=== PATIENT | female | born 1930 | race Caucasian/White ===

== ENCOUNTER 2019-02-21 20:20 | Inpatient (IN) ==
[2019-02-21] MEDS ORDERED: TYLENOL PO ONE (21:05)
[2019-02-21] MEDS ORDERED: ZOFRAN IV ONE (21:05)
[2019-02-21] MEDS ORDERED: NS 1,000 ML IV ONE (21:05)
[2019-02-21 21:51] LABS: BASO# 0.05 X1000 (0.0-0.2); BASO% 0.9 % (0.0-0.8); EOS# 0.01 X1000 (0.0-0.7); EOS% 0.2 % (0.0-10.0); HEMATOCRIT 23.6 % (37.0-47.0); HEMOGLOBIN 7.7 g/dL (12.0-16.0); IMM GRAN# 0.19 X1000 (0.0-0.04); IMM GRAN% 3.3 % (0.0-0.5); LYMPH# 0.91 X1000 (1.2-3.4); LYMPH% 15.9 % (20.5-51.1); MCH 30.8 PG (27-31); MCHC 32.6 g/dL (33-37); MCV 94.4 FL (81-99); MONO# 0.78 X1000 (0.11-0.59); MONO% 13.6 % (1.7-9.3); MPV 9.8 FL (7.4-10.4); NEUT% 66.1 % (42.2-75.2); PLT 162 X1000 (130-400); RDW 15.9 % (11.5-14.5); WBC 5.74 X1000 (4.8-10.8)
[2019-02-21 22:42] LABS: AGAP 11; ALB/GLOB RATIO 1.6; ALBUMIN 2.8 g/dL (3.5-5.0); ALKALINE PHOSPHATASE 41 U/L (32-104); BUN 12 mg/dL (8-22); CHLORIDE 104 mmol/L (98-107); COSMO 284; CREATININE 0.6 mg/dL (0.5-0.9); ESTIMATED GFR > 60; GLUCOSE 146 mg/dL (70-104); GOT 27 U/L (10-30); GPT 19 U/L (10-36); LIPASE 18 U/L (13-60); SODIUM 141 mmol/L (136-145); TCO2 26 mmol/L (25-35); TOTAL BILIRUBIN 0.55 mg/dL (0.20-1.00); TOTAL PROTEIN 4.5 g/dL (6.3-8.3)
[2019-02-21 22:47] LABS: POTASSIUM 2.8 mmol/L (3.5-5.1)
[2019-02-21 22:48] LABS: CALCIUM 6.8 mg/dL (8.8-10.2)
[2019-02-21] MEDS ORDERED: POTASSIUM CHLORIDE 20% LIQUID PO ONE (23:31)
[2019-02-22 00:43] LABS: URINE SOURCE CATH
[2019-02-22 00:45] LABS: BILIRUBIN URINE NEGATIVE (NEGATIVE); BLOOD URINE TRACE (NEGATIVE); COLOR YELLOW; GLUCOSE URINE NEGATIVE (NEGATIVE); KETONE URINE NEGATIVE (NEGATIVE); LEUKOCYTES URINE LARGE (NEGATIVE); NITRITE URINE NEGATIVE (NEGATIVE); PH URINE 6.5; PROTEIN URINE NEGATIVE (NEGATIVE); SP GRAVITY URINE 1.022; TURBIDITY URINE CLEAR (CLEAR); UROBILINOGEN URINE NORMAL (NORMAL)
[2019-02-22 00:46] LABS: UR EPITHELIAL CELLS <10 /HPF (<10); URINE BACTERIA NEGATIVE /HPF; URINE RBC <10 /HPF (<10); URINE WBC TNTC /HPF (<10)
[2019-02-22] MEDS ORDERED: ROCEPHIN 1 GM in NS 50 ML IV ONE (01:08)
[2019-02-22] MEDS ORDERED: FLAGYL 500 MG/NS 500 MG/100 ML IVPB IV ONE (01:08)
--- NOTE | 2019-02-22 01:23 | PROVIDER DOCUMENTATION ---
This chart was entered by Joselin Moody Scribe, acting as scribe for Kenia Edwards MD. HPI-General Adult - General Chief Complaint: Fever Stated Complaint: (CHEMO PT.) FEVER, DIARRHEA Time Seen by Provider: 02/21/19 21:04 Source: patient Allergies/Adverse Reactions: Patient Allergies Allergy/AdvReac Type Severity Reaction Status Date / Time nitrofurantoin Allergy RASH Verified 02/21/19 20:58 [From Macrobid] Penicillins Allergy RASH Verified 02/21/19 20:58 Home Medications: Home Medication List Medication Instructions Recorded Confirmed Last Taken Type Alprazolam [Xanax] 0.25 mg PO TID PRN PRN 04/24/18 04/24/18 04/23/18 21:00 History Amlodipine [Norvasc] 5 mg PO DAILY 04/24/18 04/24/18 04/23/18 21:00 History Aspirin [Aspir-Low] 81 mg PO QHS 04/24/18 04/24/18 1 Week Ago History ~04/17/18 Losartan [Cozaar] 25 mg PO QHS 04/24/18 04/24/18 04/23/18 21:00 History Oxybutynin [Ditropan] 5 mg PO DAILY 04/24/18 04/24/18 04/23/18 21:00 History Pantoprazole [Protonix] 40 mg PO QHS 04/24/18 04/24/18 04/23/18 21:00 History - History of Present Illness -Gen Adult Nature of Presenting Problems: Pt is 88/F presenting to ED w/ fever, weakness, diarrhea. 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 Pt was scheduled for chemo yesterday, but it was decided that they would not give it because she was too weak. Last chemo was on 02/14. no blood in diarrhea, slight nausea but no emesis, no dysuria. no cough. States she was not told that she was neuropenic on her labs yesterday. Location of Pain/Injury: reports: generalized (weakness) Onset/Duration: reports: gradual Timing: reports: still present Context/Activities at Onset: reports: none Modifying Factors: improves with: nothing Associated Symptoms: reports: diarrhea, fatigue, nausea, weakness. denies: chest pain, shortness of breath, vomiting Similar Symptoms Previously?: No Recently seen or treated by another doctor?: No Review of Systems - Adult - REVIEW OF SYSTEMS - ADULT Constitutional: reports: fever (100.3). denies: chills Eyes: reports: no symptoms reported Ears, Nose, Mouth & Throat: reports: no symptoms reported Cardiovascular: reports: no symptoms reported. denies: chest pain, edema Respiratory: reports: no symptoms reported. denies: cough, shortness of breath, wheezing Gastrointestinal: reports: no symptoms reported, diarrhea, nausea. denies: abdominal pain, constipation, vomiting Genitourinary: reports: no symptoms reported Musculoskeletal: reports: no symptoms reported Integumentary: reports: no symptoms reported Neurological: reports: no symptoms reported. denies: dizziness/vertigo, headache/migraines Psychiatric: reports: no symptoms reported Endocrine: reports: no symptoms reported Hematologic/Lymphatic: reports: no symptoms reported Allergic/Immunologic: reports: no symptoms reported All Other Systems: Reviewed and Negative Past History - Adult - PAST MEDICAL HISTORY-ADULT Review of Records: reports: Old Records Reviewed, Nursing Assessment Review, Medications Reviewed, Social history reviewed & non-contributory. Major Childhood Illnesses: reports: denies history Cardiovascular: reports: denies history Respiratory: reports: cancer (lung mets) Gastrointestinal: reports: denies history Obstetrical/Gynecological: reports: denies history Genitourinary: reports: denies history Musculoskeletal: reports: denies history Neurological: reports: denies history Psychiatric: reports: denies history Endocrine/Immune: reports: denies history - SOCIAL HISTORY Smoking: denies, non-smoker Substance Use: none/never Alcohol Use Frequency: never Physical Exam-General - PHYSICAL EXAM-ADULT Initial Vital Signs Reviewed: Yes - CONSTITUTIONAL General Appearance: appears well, alert, no apparent distress, other (feels warm to touch) - EYES Eyes: PERRL/EOMI, pink conjunctivae - HEAD, EARS, NOSE, MOUTH & THROAT HENMT: normocephalic/atraumatic, normal ENT inspection, TMs normal, pharynx normal. negative: moist mucous membranes (dry) - NECK Neck: non-tender, full range of motion, supple, normal inspection - RESPIRATORY Respiratory: lungs clear - CARDIOVASCULAR Cardiovascular: tachycardia (121) - GASTROINTESTINAL (ABDOMEN) Abdominal Exam: normal bowel sounds, soft, tenderness (mild diffuse ttp) - LYMPHATIC Lymphatic: no adenopathy - MUSCULOSKELETAL Back Exam: normal inspection, no CVA tenderness, no vertebral tenderness Extremity: normal range of motion, non-tender, normal gait, normal inspection - SKIN Integumentary: normal color, warm/dry, pallor - NEUROLOGIC Neurologic: grossly normal, no motor/sensory deficits - PSYCHIATRIC Psych/Mental Status: normal mood/affect, normal thought content, normal thought process, oriented x 3 Progress - PLAN OF CARE/RESULTS Progress/Plan/Lab Results: Vital Signs - 8 hr 02/21/19 20:28 02/21/19 20:53 Temperature 100.3 F H Pulse Rate 121 H Respiratory Rate 19 Blood Pressure 130/68 124/53 O2 Sat by Pulse Oximetry 92 L 94 L weakness with fever and diarrhea will further evaluate for causes including but not limited to colitis, diverticulitis, uti, dehydration, neuropenia, anemia, gastroenteritis Result Diagrams: 02/21/19 21:20 02/21/19 21:20 - REASSESSMENT Reassessment #1 Status: improving (feeling better, symptoms likley due to colitis along with hypokalemia and anemia. Unknown if pt's anemia has been chronically in this range as no prior labs were available but pt reports she has been told she has been anemic. Treated with potassium, ceftriaxone and flagyl and will admit for f urther evaluation and treatment.) - EKG 1 Time of EKG reading by physician:: 23:35 EKG Read and Signed by:: Kenia Edwards EKG Interpretation (*Must complete 3 of following elements*): Abnormal (sinus rhythm with 1st degree AV block, Left bundle branch block, Abnormal ECG) Rate: 94 Rhythm: sinus Northrop: normal QRS: normal - CT/MRI 1 CT Study: Abdomen Impression: Abnormal (no bowel obstruction, possible mild colitis, non-specific debris in the bladder, interstitial and airspace disease is indeterminate but suspicious for edema or infection.) - CONSULTS/PCP/HOSPITALIST Notification #1 *Consult/PCP/Hospitalist*: Conrado Time Discussed: 01:21 Consult Disposition: Admit Departure - Departure Date of Disposition Decision: 02/22/19 Time of Disposition Decision: 01:23 DIAGNOSIS: Colitis, Hypokalemia, Hypocalcemia Anemia Qualifiers: Anemia type: unspecified type Qualified Code(s): D64.9 - Anemia, unspecified Disposition: ADMITTED INPATIENT 09 Certified Medical Emergency: Emergent Condition: Fair Referrals and Follow-Ups: Aliyah Hutchins MD [Primary Care Provider] - - Critical Care Note This patient required my direct & personal management of CC.: No Attestation - Physician/ KRYSTAL Attestation Patient care was provided by Advanced Practice Provider:: No The physician spent face to face time with patient:: Yes Advanced Practice Provider documentation review:: Supervising physician onsite and consulted in the evaluation and care of this patient. The physician did have a face to face encounter with the patient. This chart was documented by the indicated scribe, (Joselin Moody, Aleida) and accurately reflects the services I performed and decisions made by me, Kenia Edwards MD, as attested by the provider's signature.
[2019-02-22 01:38] LABS: RETIC% 2.61 % (0.8-2.1); RETIC-HE 26.2 PG (28.2-36.6)
[2019-02-22 01:57] LABS: PHOSPHORUS 1.7 mg/dL (2.7-4.5)
[2019-02-22] MEDS ORDERED: MORPHINE IV PRN ×2 (03:13→13:31)
[2019-02-22] MEDS ORDERED: ZOFRAN IV PRN (03:13)
[2019-02-22] MEDS ORDERED: ROCEPHIN 1 GM in NS 50 ML IV SCH (03:13)
[2019-02-22] MEDS: LOVENOX SUBQ SCH (03:53)
[2019-02-22] MEDS ORDERED: XANAX PO ONE (04:07)
[2019-02-22] MEDS: POTASSIUM CHLORIDE 10 MEQ in NS 1,000 ML IV SCH ×2 (04:27→11:00)
--- NOTE | 2019-02-22 05:11 | HISTORY AND PHYSICAL ---
REASON FOR ADMISSION: Two weeks of diarrhea and fever of 1 day. HISTORY OF PRESENT ILLNESS: Ms. 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 She also has a history of anxiety. Comes in today with 2-week history of nonbloody diarrhea, worse when she eats. She has 3 to 4 loose stools a day. Denies any contacts with anybody with diarrheal illness. No history of travel. No antibiotic use recently. No recent change in her medications. Denies any vomiting but has been having intermittent nausea. Came in today because she was profoundly weak and developed intermittent fevers today. Also, complains of chills. She was unable to walk in to the point that her son had to practically lift her up and bring her in. Also admits to having postural lightheadedness. No bleeding from any orifice. No genitourinary or cardiorespiratory complaints. Two days ago was worse, seen by Dr. Hutchins's nurse practitioner, and her chemotherapy was withheld because her lab work was abnormal. REVIEW OF SYSTEMS: Twelve system review was done, positive findings per HPI. Currently, the patient says she feels much better since receiving 1 L of fluid. No rash or arthralgia. No polyuria or polydipsia. ALLERGIES: Penicillin, Macrobid. HOME MEDICATIONS: 1. Protonix 40 mg at bedtime. 2. Ditropan 5 mg daily, 3. Ferrous sulfate 325 mg b.i.d. 4. Lexapro 10 mg daily. 5. Amlodipine 5 mg daily. 6. Xanax. 0.25 mg t.i.d. FAMILY HISTORY: Notable for diabetes, prostate cancer, thyroid cancer in 1st degree relatives. SOCIAL HISTORY: Does not smoke, drink, or use drugs. Lives with her daughter. SURGICAL HISTORY: She has had hysterectomy, kidney stone extraction, cholecystectomy, appendectomy. LABORATORY WORK: White count 5000, H and H 7.7 and 23.6, platelets 162,000 with normal differential. Potassium is 2.8, BUN 12, creatinine 0.6. Glucose is 146, calcium is 6.8, with albumin of 2.8, phosphorus is 4.3, iron is 30, B12 and folate normal. Reticulocyte percent is 2.6. WBC too numerous to count with lots of leukocytes, no bacteria. CT scan of the abdomen and pelvis showed diffuse colitis. Chest film is essentially unremarkable, within normal limits. CT scan does show bilateral infiltrates in lungs in the bases. PHYSICAL EXAMINATION: VITAL SIGNS: Blood pressure 101/44, heart rate 66, respirations 18, temperature 97.8, O2 saturation 98% on room air. GENERAL: She is a pleasant, chronically ill, woman who is alert and oriented to person, time. Normal mood and affect. HEENT: Head is normocephalic, atraumatic. Eyes: PERRL, EOMI. She is anicteric but pale. ENT exam is grossly unremarkable. NECK: Supple. No JVD or carotid bruit. No thyromegaly. CHEST: Clear to auscultation with good air entry both lung ferreira. CARDIOVASCULAR: First and second sounds heard. No gallops, murmurs, rubs. Rhythm is regular. ABDOMEN: Full, soft, with very minimal tenderness, diffuse tenderness. No rebound or guarding. Bowel sounds are hypoactive. RECTAL: Deferred at this time. EXTREMITIES: No edema, clubbing, or cyanosis. She has numerous bruises on the geiger. Distal pulses have decreased pulse volume, symmetrical and regular. NEUROLOGICAL: No gross focal deficits. SKIN: Grossly unremarkable. See above otherwise. MUSCULOSKELETAL: Grossly normal at this time. ASSESSMENT AND PLAN: 1. Diffuse colitis. 2. Bibasilar pneumonia. 3. Probable urinary tract infection. 4. Metastatic throat cancer. 5. Hypertension. 6. Anemia secondary to probable neoplasm/chemotherapy. 7. Hypokalemia. 8. Dehydration. 9. Hypocalcemia and hypophosphatemia. PLAN: Continue IV fluid rehydration. If repeat CBC shows hemoglobin less than 7, we will transfuse with 1 unit of packed red blood cells. Empiric antibiotics, i.e. Flagyl and Rocephin, will be continued. Daily CRP to detect response to treatment. Replete any electrolyte derangements in the interim. Hold blood pressure medications for systolic pressures less than 150. If need be consult Dr. Aliyah Hutchins. cc: MD Aliyah Ozuna MD
[2019-02-22] MEDS: FLAGYL 500 MG/NS 500 MG/100 ML IVPB IV SCH ×3 (06:09→18:47)
--- NOTE | 2019-02-22 06:36 | EKG Report ---
Test Performed on : 02/21/2019 11:35:14 PM Test Reason : hyperkalemia Blood Pressure : / mmHG Vent. Rate : 094 BPM Atrial Rate : 094 BPM P-R Int : 232 ms QRS Dur : 128 ms QT Int : 424 ms P-R-T Axes : 053 -26 145 degrees QTc Int : 530 ms Sinus rhythm. with 1st degree AV block. Left bundle branch block Abnormal ECG No previous ECGs available Unconfirmed Result
--- NOTE | 2019-02-22 07:27 | Diag Imaging Result Doc PS360 ---
EXAM: CHEST-2 VIEWS 02/21/2019 HISTORY: fever TECHNIQUE: AP and lateral chest COMMENT: There is ill-defined opacity in both lung bases which was not the case on 04/24/2018. The heart size and pulmonary vascularity appears stable. IMPRESSION: Bronchopneumonia. Electronically signed by Venu hTomas 02/22/2019 7:25 AM
--- NOTE | 2019-02-22 08:02 | Diag Imaging Result Doc PS360 ---
EXAM: CT ABD/PELVIS W/IV CONT ONLY INDICATION: fever TECHNIQUE: This exam was performed using automated exposure control, adjustment of mA or kV according to patient size, and/or use of iterative reconstruction technique. COMPARISON: CT PET scan dated 03/28/2018 FINDINGS: There is a trace right pleural fluid collection at the base. There are patchy interstitial and airspace consolidations at both lung bases indicating edema and/or infection. There is a masslike lesion in the right lower lobe in the region of a hypermetabolic mass seen on the previous PET scan that has increased in size suspicious for neoplasm. It measures 3.5 x 2.8 cm axially on the current study. There has been a prior cholecystectomy. There is a tiny hypodense focus at the inferior aspect of the right hepatic lobe with no evidence of associated enhancement. This probably represents a tiny cyst. The spleen, pancreas, and adrenal glands are essentially unremarkable. There is a nonobstructive intrarenal stone on the right. There are several low dense renal foci most consistent with small cysts, some of which appear to contain proteinaceous debris or blood products. There is one hypodense focus at the anterior aspect of the left kidney measuring 1.4 x 1.3 cm axially on image 58 of series 6 that appears to be heterogeneous and may be slightly enhancing at its periphery. Neoplasm cannot be excluded. It is difficult to compare to the previous PET scan as it was done without IV contrast. There is mild prominence of the distal left ureter that is nonspecific. No obstructing stone is identified. There is layering debris in the urinary bladder that is nonspecific. It may represent blood products or other layering proteinaceous debris. It does not enhance. The urinary bladder is unremarkable, otherwise. There has been a prior hysterectomy. There is liquid stool throughout the colon suggesting a diarrheal illness. The distal colonic wall appears mildly prominent suggesting possible mild colitis. There is no evidence of bowel obstruction. There is a small hiatal hernia. The remainder of the GI tract is essentially unremarkable. There is trace free fluid layering in the pelvis. No free abdominal gas is appreciated. IMPRESSION: 1.Liquid stool throughout the colon suggesting diarrhea with illness with mild prominence of the distal colonic wall. Consider mild colitis. 2.Interstitial and airspace infiltrates at the lung bases suggesting edema and/or infection. 3.Masslike density in the right lower lobe at the site of a hypermetabolic nodule seen on previous CT that has increased in size on the current study. 4.Multiple small renal hypodensities that appear to represent cysts. However, there is one that is heterogeneous and may represent a solid nodule at the anterior aspect of the left kidney. Neoplasm cannot be excluded. 5.Other incidental/nonacute findings detailed above. Electronically signed by Jose Armando Roberts 02/22/2019 8:00 AM
[2019-02-22] MEDS: NEUTRA-PHOS PO SCH ×2 (10:57→21:24)
[2019-02-22] MEDS: NORVASC PO SCH (10:57)
[2019-02-22 11:09] LABS: HEMATOCRIT 26.7 % (37.0-47.0); HEMOGLOBIN 8.7 g/dL (12.0-16.0); RBC 2.79 XMIL (4.2-5.4); WBC 6.47 X1000 (4.8-10.8)
[2019-02-22 11:10] LABS: BASO# 0.04 X1000 (0.0-0.2); BASO% 0.6 % (0.0-0.8); IMM GRAN# 0.18 X1000 (0.0-0.04); IMM GRAN% 2.8 % (0.0-0.5); LYMPH% 12.4 % (20.5-51.1); MCH 31.2 PG (27-31); MCHC 32.6 g/dL (33-37); MCV 95.7 FL (81-99); MONO# 0.76 X1000 (0.11-0.59); MONO% 11.7 % (1.7-9.3); MPV 9.6 FL (7.4-10.4); NEUT# 4.69 X1000 (1.4-6.5); NEUT% 72.5 % (42.2-75.2); PLT 182 X1000 (130-400); RDW 16.4 % (11.5-14.5)
[2019-02-22 12:08] LABS: AGAP 11; ALB/GLOB RATIO 1.3; ALKALINE PHOSPHATASE 41 U/L (32-104); BUN 5 mg/dL (8-22); CHLORIDE 109 mmol/L (98-107); COSMO 292; CREATININE 0.5 mg/dL (0.5-0.9); ESTIMATED GFR > 60; GLUCOSE 165 mg/dL (70-104); GOT 29 U/L (10-30); GPT 21 U/L (10-36); PHOSPHORUS 1.3 mg/dL (2.7-4.5); SODIUM 146 mmol/L (136-145); TCO2 26 mmol/L (25-35); TOTAL BILIRUBIN 0.55 mg/dL (0.20-1.00); TOTAL PROTEIN 5.4 g/dL (6.3-8.3)
[2019-02-22 12:37] LABS: CALCIUM 6.8 mg/dL (8.8-10.2); MAGNESIUM 0.8 mg/dL (1.5-2.7)
[2019-02-22] MEDS ORDERED: MAGNESIUM SULFATE 2 GM/S.W.I. 2 GM/50 ML IVPB IV ONE ×2 (13:29→21:48)
[2019-02-22] MEDS ORDERED: CALCIUM GLUCONATE 4.65 MEQ in NS 50 ML IV ONE ×2 (13:30→21:50)
[2019-02-22] MEDS ORDERED: 1/2 NS 1,000 ML IV SCH ×2 (13:45→19:08)
--- NOTE | 2019-02-22 15:42 | PROGRESS NOTE ---
DATE: 02/22/2019 SUBJECTIVE: At the moment of my physical exam, this patient was feeling much better. It looks like she was severely dehydrated. She has been having diarrhea for the past couple of weeks, probably related to chemotherapy and/or colitis. She does have a history of metastatic throat cancer followed by Dr. Hutchins. She did not notice any blood in the stool. She is not complaining of belly pain at this moment but she is still having electrolytes imbalance. She is slightly hypernatremic. The hypokalemia resolved. She is hypocalcemic and also she does have hypomagnesemia. I will do some changes with her IV fluids. I will stop the normal saline with potassium and I will put her on half NS since her sodium is a little bit high as well as the chloride. I will replace the calcium and the magnesium. She has been getting Neutra-Phos to replace the phosphorus. OBJECTIVE: Vital Signs: Temperature 100.8, pulse 90, respiratory rate 16, blood pressure 123/45, oxygen saturation 99 on 2 L of nasal cannula. HEENT: Head normocephalic. No trauma. PERRLA. Neck: Supple. No JVD. Central trachea. Mouth: I do not see any lesion inside her mouth at this moment. Chest: Clear to auscultation. Some crepitus mostly at the bases bilaterally. Extremities: No edema, no clubbing, no cyanosis. Neurological: This patient is completely alert and oriented x3. No focal deficit but some generalized weakness. LABORATORY: WBC 6.4, hemoglobin 8.7, hematocrit 26.7, platelet 182. Sodium 146, potassium 4, chloride 109, bicarbonate 26, BUN 5, creatinine 0.5, glucose 165, calcium 6.8, phosphorus 1.3, magnesium 0.8, albumin 3. ASSESSMENT AND PLAN: 1. Abdominal pain with diarrhea. As per the patient, she has been having diarrhea for at least a couple of weeks. CT scan showed the possibility of colitis. She has been placed on antibiotics, ceftriaxone and metronidazole. Will continue with oxygen supplementation. Will continue to monitor. She is not complaining of chest pain or shortness of breath at this moment. 2. Bibasilar pneumonia. Continue with ceftriaxone and Flagyl. She is not really having symptoms. She has not been coughing. 3. Possible of urinary tract infection. Urine cultures so far negative. 4. Metastatic throat cancer, followed by Dr. Hutchins. Will continue to monitor. 5. Hypertension, stable. 6. Anemia secondary to chronic disease. We will just monitor. 7. Electrolyte imbalance including hypokalemia resolved, hypernatremia with hypophosphatemia and hypocalcemia. Hypomagnesemia. We will replace all the electrolytes. I will recheck the electrolytes again at 7 p.m. cc: Thor Fernandez MD
--- NOTE | 2019-02-22 19:44 | Diag Imaging Result Doc PS360 ---
EXAM: CHEST-PORTABLE HISTORY: SOB TECHNIQUE: Chest single view COMPARISON: 02/21/2019 FINDINGS: The lungs are well expanded. The heart is not enlarged. The vessels are not distended. There are basilar infiltrates, right greater than left. No effusion identified. IMPRESSION: Worsening pneumonia. Electronically signed by Viral Underwood 02/22/2019 7:42 PM
[2019-02-22 20:10] LABS: AGAP 14; BUN 5 mg/dL (8-22); CALCIUM 6.7 mg/dL (8.8-10.2); CHLORIDE 105 mmol/L (98-107); COSMO 268; CREATININE 0.6 mg/dL (0.5-0.9); ESTIMATED GFR > 60; GLUCOSE 107 mg/dL (70-104); MAGNESIUM 1.4 mg/dL (1.5-2.7); POTASSIUM 3.7 mmol/L (3.5-5.1); SODIUM 135 mmol/L (136-145); TCO2 16 mmol/L (25-35)
[2019-02-22] MEDS: TYLENOL PO PRN (21:24)
[2019-02-22] MEDS: XANAX PO PRN (21:24)
[2019-02-23] MEDS: MERREM 1 GM in NS 50 ML IV SCH ×4 (00:07→21:34)
[2019-02-23] MEDS: LOVENOX SUBQ SCH (03:40)
[2019-02-23] MEDS: FLAGYL 250 MG/NS 250 MG/50 ML IVPB IV SCH ×4 (03:49→21:34)
[2019-02-23 07:16] LABS: BASO# 0.01 X1000 (0.0-0.2); BASO% 0.2 % (0.0-0.8); EOS# 0.01 X1000 (0.0-0.7); EOS% 0.2 % (0.0-10.0); HEMATOCRIT 26.8 % (37.0-47.0); HEMOGLOBIN 8.7 g/dL (12.0-16.0); IMM GRAN# 0.15 X1000 (0.0-0.04); IMM GRAN% 2.3 % (0.0-0.5); LYMPH# 0.68 X1000 (1.2-3.4); LYMPH% 10.4 % (20.5-51.1); MCH 30.9 PG (27-31); MCHC 32.5 g/dL (33-37); MONO# 0.71 X1000 (0.11-0.59); MONO% 10.9 % (1.7-9.3); MPV 9.8 FL (7.4-10.4); NEUT# 4.96 X1000 (1.4-6.5); PLT 219 X1000 (130-400); RBC 2.82 XMIL (4.2-5.4); RDW 16.8 % (11.5-14.5); WBC 6.52 X1000 (4.8-10.8)
[2019-02-23 07:48] LABS: AGAP 12; ALB/GLOB RATIO 1.2; ALBUMIN 2.9 g/dL (3.5-5.0); ALKALINE PHOSPHATASE 44 U/L (32-104); BUN 5 mg/dL (8-22); CHLORIDE 104 mmol/L (98-107); COSMO 277; CREATININE 0.5 mg/dL (0.5-0.9); ESTIMATED GFR > 60; GLUCOSE 98 mg/dL (70-104); GOT 30 U/L (10-30); GPT 22 U/L (10-36); POTASSIUM 3.1 mmol/L (3.5-5.1); SODIUM 140 mmol/L (136-145); TCO2 24 mmol/L (25-35); TOTAL PROTEIN 5.3 g/dL (6.3-8.3)
[2019-02-23 07:50] LABS: CALCIUM 7.1 mg/dL (8.8-10.2)
[2019-02-23] MEDS ORDERED: KLOR-CON PO ONE (08:01)
[2019-02-23] MEDS ORDERED: POTASSIUM PHOSPHATE 30 MMOL in NS 250 ML IV ONE (08:02)
--- NOTE | 2019-02-23 08:11 | Diag Imaging Result Doc PS360 ---
EXAM: CHEST-PORTABLE INDICATION: dyspnea TECHNIQUE: One view COMPARISON: 02/22/2019 FINDINGS: Bibasilar infiltrates are essentially stable. There has been interval development of an infiltrate in the right upper lobe as well. No other new consolidation is identified. Cardiac silhouette is stable. IMPRESSION: Developing infiltrate in the right upper lobe. Stable bibasilar infiltrates. Electronically signed by Jose Armando Roberts 02/23/2019 8:08 AM
[2019-02-23] MEDS: NORVASC PO SCH ×2 (08:30→09:00)
[2019-02-23] MEDS: TYLENOL PO PRN ×2 (08:30→17:13)
[2019-02-23] MEDS ORDERED: LASIX IV ONE (09:45)
[2019-02-23] MEDS: ZYVOX 600 MG/D5W 600 MG/300 ML IVPB IV SCH (12:18)
--- NOTE | 2019-02-23 13:09 | PROGRESS NOTE ---
DATE: 02/23/2019 SUBJECTIVE: At the moment of my physical exam this patient was completely alert. She was oriented x3. She feels a little bit short of breath, she has some crackles, mostly at the bases. Urine culture showed gram-positive cocci so I will put her on Zyvox. X-ray today showed a developing infiltrate in the right upper lobe, and stable bibasilar infiltrates. Continue with broad-spectrum antibiotics. OBJECTIVE: Vital Signs: At 8 a.m., temperature 101.3 degrees, pulse 82, respiratory rate 20, blood pressure 131/43, oxygen saturation 92 on 2 L of nasal cannula. HEENT: Head normocephalic, no trauma. PERRLA. Neck: Supple. No JVD. No masses. Central trachea. Chest: Clear to auscultation. Some crackles at the bases and some rhonchi scattered at the bases as well. Extremities: No edema. No clubbing. No cyanosis. Neurologic: This patient is completely alert and oriented x3. No focal neurological deficits, but generalized weakness. LABORATORY: WBC 6.5, hemoglobin 8.7, hematocrit 26.8, platelets 219,000. Sodium 140, potassium 3.1, chloride 104, bicarbonate 24, BUN 5, creatinine 0.5, glucose 98. Calcium 7.1. Phosphorus 1.6. Magnesium 2. Albumin 2.9. ASSESSMENT AND PLAN: 1. Abdominal pain with diarrhea, resolved. She had a CT scan that showed the possibility of colitis. She has been placed on antibiotics, we will continue with that. As per the patient she started having diarrhea at least a couple of weeks ago. 2. Bibasilar pneumonia, with a possible new infiltrate at the level of the right upper lobe, continue with broad-spectrum antibiotics. Since this patient has been having fever, I have stopped the ceftriaxone and put her on meropenem since she is allergic to penicillin. 3. Possible urinary tract infection, with a positive culture that showed gram-positive cocci, I have placed this patient on Zyvox. We will continue with same management. 4. Metastatic throat cancer followed by Dr. Hutchins. Continue to monitor. 5. Hypertension, stable. 6. Anemia secondary to chronic disease. We will just monitor. 7. Electrolyte imbalance. We will continue correcting her electrolytes. Today she is hypokalemic, also she has hypophosphatemia. Magnesium level resolved. Calcium level is better. 8. Metastatic throat cancer, I believe, to the lungs. We will continue to monitor. 9. Mild pulmonary edema on my physical examination. I will stop the IV fluids and I will give her a low dose of Lasix. I will re-evaluate this patient later for that. cc: Thor Fernandez MD
[2019-02-23] MEDS: XANAX PO PRN (21:37)
[2019-02-23] MEDS ORDERED: CALMOSEPTINE OINTMENT TOP PRN (22:13)
[2019-02-24] MEDS: ZYVOX 600 MG/D5W 600 MG/300 ML IVPB IV SCH ×2 (00:30→13:00)
[2019-02-24] MEDS: FLAGYL 250 MG/NS 250 MG/50 ML IVPB IV SCH ×2 (02:47→09:03)
[2019-02-24] MEDS: TYLENOL PO PRN ×2 (04:56→20:17)
[2019-02-24] MEDS: MERREM 1 GM in NS 50 ML IV SCH ×2 (04:57→05:05)
[2019-02-24] MEDS: LOVENOX SUBQ SCH ×2 (04:57→05:05)
[2019-02-24 07:06] LABS: BASO# 0.02 X1000 (0.0-0.2); BASO% 0.2 % (0.0-0.8); EOS# 0.04 X1000 (0.0-0.7); EOS% 0.5 % (0.0-10.0); HEMOGLOBIN 7.8 g/dL (12.0-16.0); IMM GRAN# 0.13 X1000 (0.0-0.04); IMM GRAN% 1.6 % (0.0-0.5); LYMPH# 0.81 X1000 (1.2-3.4); LYMPH% 9.7 % (20.5-51.1); MCH 30.7 PG (27-31); MCHC 32.5 g/dL (33-37); MCV 94.5 FL (81-99); MONO# 0.62 X1000 (0.11-0.59); MONO% 7.5 % (1.7-9.3); MPV 9.2 FL (7.4-10.4); NEUT% 80.5 % (42.2-75.2); PLT 239 X1000 (130-400); RBC 2.54 XMIL (4.2-5.4); RDW 16.5 % (11.5-14.5); WBC 8.32 X1000 (4.8-10.8)
[2019-02-24 07:40] LABS: AGAP 11; BUN 5 mg/dL (8-22); CALCIUM 6.6 mg/dL (8.8-10.2); CHLORIDE 106 mmol/L (98-107); COSMO 280; CREATININE 0.5 mg/dL (0.5-0.9); ESTIMATED GFR > 60; GLUCOSE 98 mg/dL (70-104); MAGNESIUM 1.5 mg/dL (1.5-2.7); PHOSPHORUS 1.1 mg/dL (2.7-4.5); SODIUM 142 mmol/L (136-145); TCO2 25 mmol/L (25-35)
[2019-02-24] MEDS ORDERED: CALCIUM GLUCONATE 4.65 MEQ in NS 50 ML IV ONE (08:00)
[2019-02-24] MEDS: NORVASC PO SCH (09:59)
[2019-02-24] MEDS ORDERED: POTASSIUM PHOSPHATE 40 MEQ in NS 250 ML IV ONE (10:00)
--- NOTE | 2019-02-24 11:15 | CONSULTATION ---
DATE OF CONSULTATION: 02/24/2019 CONCLUSION: The patient has a bilateral pneumonia. She also has diarrhea that could possibly be due to Clostridium difficile. She also has an enterococcal urinary tract infection. RECOMMENDATIONS: I agree with treating the patient with Zyvox. I have substituted cefepime for meropenem and I have requested that the nurse watch the patient during the first dose of cefepime. Also, I have discontinued Flagyl and put the patient on p.o. vancomycin. DISCUSSION: The patient, approximately 18 days ago, started having fever and diarrhea. She did not notice any blood in her stool. She was not vomiting. She did not have a cough or dysuria. Laboratory and radiographic studies thus far show a CBC with a white count of 8320, hemoglobin 7.8, and platelet count 239,000. Creatinine is 0.5. GFR is greater than 60. Liver function studies are normal. Urinalysis showed white cells but no bacteria. Stool for Clostridium difficile toxin was negative. The stool for Clostridium difficile antigen is pending. Urine culture grew out enterococcus. Stool culture is pending. Blood cultures are pending. Prior blood cultures were negative. CT scan of the abdomen showed colitis and bibasilar infiltrates, and a right lower lobe mass which is getting bigger. Chest x-ray shows bibasilar and right upper lobe infiltrates. PAST MEDICAL HISTORY/REVIEW OF SYSTEMS: Eyes and Ears: The patient has decreased hearing but her vision is okay. Neck: She does not have any stiffness in her neck. Respiratory: See present illness. Cardiac: No chest pain or palpitations. GI: See present illness. Genitourinary: The patient did grow enterococcus in her urine. She is not complaining at this time of dysuria or flank pain. Bones, Joints, and Muscles: No swollen joints or muscle aching. Integument: The patient does have a punctate erythematous rash which she said is due to her chemotherapy. Neurologic: The patient has not had seizures. She has not had any recent loss of motor or sensory function. PROVIDER RELATIONS CONSULTANT HISTORY: She is a 3, para 3, AB 0. She has had a hysterectomy and bilateral salpingo-oophorectomy. PREVIOUS HOSPITALIZATIONS AND OPERATIONS: The patient has had 3 labor and deliveries, a hysterectomy and bilateral salpingo-oophorectomy, an appendectomy, cholecystectomy, and laminectomy. The patient also had coronary artery stents placed. She was admitted to the hospital once for a renal calculus and an associated urinary tract infection. 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 The patient has been treated for that with radiation therapy and chemotherapy. Gastroesophageal reflux disease. INFECTIOUS DISEASE HISTORY: Positive for pneumonia and UTI. FAMILY HISTORY: Positive for hypertension, myocardial infarction, and cancer. SOCIAL HISTORY: [place] She is living with a family member. She has a dog as a pet. She does not smoke cigarettes, drink alcoholic beverages, or abuse drugs. ALLERGIES: She is allergic to penicillin manifested by a rash. It was not hives. She has been on meropenem and tolerated it well. HOME MEDICATIONS: Include the following: Xanax, Norvasc, Lexapro, ferrous sulfate, Ditropan and Protonix. PHYSICAL EXAMINATION: Temperature earlier was 100.4 and now it is 98.2, pulse 96, respirations 18, blood pressure 107/50. The patient is 5 feet tall and weighs 149 pounds. General: This is an ill-appearing, elderly female. She is in no acute distress. Head, Eyes, Ears, Nose, and Throat: She has decreased hearing. She can see near objects. She has lost all of her hair on her head. She does not have any white patches in her mouth. There is no drainage from her nose or ears. Neck: No meningismus. Lungs: Clear to auscultation. Cardiovascular: Heart rate is regular. Abdomen: Soft and nontender. Neurologic: The patient is alert. She can move her extremities. Her sensation is intact to touch. Her memory as regarding her medical history is decreased. Integument: The patient has erythematous circular lesions on her extremities. Thank you for the consult. cc: Harrison Valera MD
--- NOTE | 2019-02-24 13:42 | PROGRESS NOTE ---
DATE: 02/24/2019 SUBJECTIVE: At the moment, on my physical exam, she was completely alert, awake, she was oriented x3. She was not feeling short of breath. She was not complaining of pain. Infectious disease department evaluated this patient. They are adjusting her medications. OBJECTIVE: Vital Signs: Temperature 98.2 degrees, pulse 96, respiratory rate 18, blood pressure 107/50, oxygen saturation 92 on 2 L of nasal cannula. HEENT: Head normocephalic. No trauma. PERRLA. Neck: Supple. No JVD. No masses. Central trachea. Chest: Clear to auscultation. Some crepitus at the bases and probably some rhonchi scattered as well. Extremities: No edema. No clubbing. No cyanosis. Neurological Examination: This patient is completely alert. She is oriented x3. No focal neurological deficits but generalized weakness. Laboratory: WBC 8.3, hemoglobin 7.8, hematocrit 24, platelets 239,000. Sodium 142, potassium 3, chloride 106, bicarbonate 25, BUN 5, creatinine 0.5, glucose 98, calcium 6.6, phosphorus 1.1, magnesium 1.5. ASSESSMENT AND PLAN: 1. Abdominal pain with diarrhea. The abdominal pain is much better. She is still having some watery bowel movements, 3 or 4 per day. As per the patient, before coming to the hospital, the diarrhea was continuous. As per the patient, she started having diarrhea a couple weeks ago. We have requested Clostridium difficile toxin and antigen. Her Clostridium difficile toxin is negative. Pending Clostridium difficile antigen. Infectious disease department started this patient on vancomycin by mouth until we have the results of the Clostridium difficile antigen. 2. Bibasilar pneumonia. Continue broad-spectrum antibiotics. Since this patient has been having fever even though she was getting antibiotics, I have requested an evaluation by infectious disease department. 3. Urinary tract infection due to Enterococcus faecalis. We will continue with the same management. She is on Zyvox. 4. Metastatic throat cancer, followed by Dr. Hutchins. Continue to monitor. 5. Hypertension, stable. 6. Anemia secondary to chronic disease. We will just monitor and we will transfuse this patient if the hemoglobin drops below 7 or if she is asymptomatic. 7. Hypokalemia. I will replace the potassium. 8. Hypomagnesemia. It looks better today compared with a couple days ago but still borderline low. We will monitor. 9. Hypocalcemia. I will replace the calcium. 10. Hypophosphatemia. I am replacing the phosphorus. For all these electrolyte imbalances, I will repeat the lab work today in the afternoon. 11. Mild pulmonary edema on my physical exam. We already stopped the intravenous fluids. She received a low dose of Lasix. We will continue to monitor. 12. Abdominal pain with possible colitis as well. Continue with antibiotics. cc: Thor Fernandez MD
[2019-02-24] MEDS: VANCOCIN PO SCH ×2 (15:05→20:17)
[2019-02-24] MEDS: MAXIPIME 2 GM in NS 100 ML IV SCH (16:34)
[2019-02-24 19:08] LABS: AGAP 13; BUN 5 mg/dL (8-22); CALCIUM 7.4 mg/dL (8.8-10.2); CHLORIDE 101 mmol/L (98-107); COSMO 270; CREATININE 0.5 mg/dL (0.5-0.9); ESTIMATED GFR > 60; GLUCOSE 115 mg/dL (70-104); MAGNESIUM 1.6 mg/dL (1.5-2.7); PHOSPHORUS 1.3 mg/dL (2.7-4.5); POTASSIUM 3.9 mmol/L (3.5-5.1); SODIUM 136 mmol/L (136-145); TCO2 22 mmol/L (25-35)
[2019-02-24] MEDS ORDERED: POTASSIUM PHOSPHATE 30 MMOL in NS 250 ML IV ONE (19:30)
[2019-02-24] MEDS: XANAX PO PRN (22:12)
[2019-02-25] MEDS: MAXIPIME 2 GM in NS 100 ML IV SCH ×3 (00:23→20:40)
[2019-02-25] MEDS: VANCOCIN PO SCH ×5 (00:24→20:40)
[2019-02-25] MEDS: ZYVOX 600 MG/D5W 600 MG/300 ML IVPB IV SCH ×2 (00:24→21:45)
[2019-02-25] MEDS: LOVENOX SUBQ SCH (05:28)
[2019-02-25 06:36] LABS: BASO# 0.03 X1000 (0.0-0.2); BASO% 0.4 % (0.0-0.8); EOS# 0.05 X1000 (0.0-0.7); EOS% 0.7 % (0.0-10.0); HEMATOCRIT 25.5 % (37.0-47.0); HEMOGLOBIN 8.2 g/dL (12.0-16.0); IMM GRAN# 0.21 X1000 (0.0-0.04); IMM GRAN% 2.8 % (0.0-0.5); LYMPH# 0.95 X1000 (1.2-3.4); LYMPH% 12.6 % (20.5-51.1); MCH 30.9 PG (27-31); MCHC 32.2 g/dL (33-37); MCV 96.2 FL (81-99); MONO# 0.58 X1000 (0.11-0.59); MONO% 7.7 % (1.7-9.3); MPV 9.1 FL (7.4-10.4); NEUT# 5.69 X1000 (1.4-6.5); NEUT% 75.8 % (42.2-75.2); PLT 281 X1000 (130-400); RBC 2.65 XMIL (4.2-5.4); RDW 17.1 % (11.5-14.5); WBC 7.51 X1000 (4.8-10.8)
--- NOTE | 2019-02-25 07:35 | Diag Imaging Result Doc PS360 ---
EXAM: CHEST-PORTABLE INDICATION: dyspnea TECHNIQUE: One view COMPARISON: 02/23/2019 FINDINGS: Bibasilar infiltrates and the right upper lobe infiltrate are grossly stable. No new consolidation is appreciated. Cardiac silhouette is stable. IMPRESSION: Stable chest. Electronically signed by Jose Armando Roberts 02/25/2019 7:33 AM
[2019-02-25 07:37] LABS: AGAP 7; ALBUMIN 2.4 g/dL (3.5-5.0); ALKALINE PHOSPHATASE 45 U/L (32-104); BUN 5 mg/dL (8-22); CALCIUM 7.3 mg/dL (8.8-10.2); CHLORIDE 112 mmol/L (98-107); COSMO 286; CREATININE 0.4 mg/dL (0.5-0.9); ESTIMATED GFR > 60; GLUCOSE 101 mg/dL (70-104); GOT 27 U/L (10-30); GPT 18 U/L (10-36); MAGNESIUM 1.7 mg/dL (1.5-2.7); PHOSPHORUS 1.8 mg/dL (2.7-4.5); POTASSIUM 4.5 mmol/L (3.5-5.1); SODIUM 145 mmol/L (136-145); TCO2 26 mmol/L (25-35); TOTAL BILIRUBIN 0.48 mg/dL (0.20-1.00); TOTAL PROTEIN 4.8 g/dL (6.3-8.3)
[2019-02-25] MEDS: NORVASC PO SCH (08:17)
[2019-02-25] MEDS: DITROPAN PO SCH (08:17)
[2019-02-25] MEDS ORDERED: SODIUM PHOSPHATE 40 MMOL in NS 250 ML IV ONE (10:23)
[2019-02-25] MEDS ORDERED: CALCIUM GLUCONATE 2 GM in NS 100 ML IV ONE (10:23)
--- NOTE | 2019-02-25 13:32 | PROGRESS NOTE ---
DATE: 02/25/2019 SUBJECTIVE: The patient reports feeling fine. She reports 2 episodes of diarrhea during the last 24 hours. No abdominal pain. Not feeling sick to her stomach anymore. OBJECTIVE: Vital: Temperature 98.6 degrees, heart rate 88, respiratory rate 22, blood pressure 137/50, O2 saturation 94% 2 L nasal cannula. General: This is a chronically ill-appearing 88- year-old female, lying in bed, in no acute distress. Cardiovascular: S1, S2 heard. No murmurs, gallops, or rubs. Regular rate and rhythm. Respiratory: Some rhonchi in both pulmonary bases. The patient is not using any accessory muscles or having work of breathing. Abdomen: Soft. Nontender to palpation. Bowel sounds present. No organomegaly. Extremities: No clubbing, cyanosis, or edema. Peripheral pulses present in both legs. Neurological: Patient is alert and oriented x3. Moves 4 extremities. DIAGNOSTIC STUDIES: The white cell count 7.51, hemoglobin 8.2, hematocrit 25.5, platelets 281. BMP is normal with calcium 7.3 and phosphorus 1.8. ASSESSMENT AND PLAN: 1. Abdominal pain with diarrhea. Actually, patient is not complaining of any abdominal pain at this time, and diarrhea is getting better. At this time, we are going to do GI soft diet instead of clear liquids, and we will go from there. 2. Bibasilar pneumonia. The patient continues to have fever. She had 102.5 yesterday. She requests ID consultation. Currently, patient is on Zyvox, and now she has been started on meropenem, and the patient is on p.o. vancomycin as well. At this point, we will continue with the same management. 3. Urinary tract infection secondary to Enterococcus faecalis. Patient is on p.o. Zyvox. 4. Metastatic throat cancer. Dr. Hutchins following this patient as an outpatient. 5. Hypertension, stable. 6. Anemia of chronic disease. We will provide breathing treatments needed and also we will transfuse PRBCs as needed. 7. Hypokalemia, resolved. 8. Hypocalcemia. We will replete Calcium. 9. Hypophosphatemia. We will replete phosphorus. 10. Abdominal pain with possible colitis as well. We will continue with antibiotics mentioned as above. cc: MD LEONIDAS Laura
--- NOTE | 2019-02-25 16:57 | INFECTIOUS DISEASE PROGRESS NO ---
DATE: 02/25/2019 PRESENT ILLNESS: The patient has a bibasilar and right upper lobe pneumonia and she also has an enterococcal urinary tract infection. MEDICATIONS: The patient is receiving a combination of Zyvox and cefepime. This is the second day of treatment with those antibiotics. PHYSICAL EXAMINATION: Vital Signs: Temperature is 98.6 degrees, pulse 88, respirations 22, blood pressure 137/58. General: The patient today looks much better than she did yesterday. She is in no acute distress and she is able to walk with help. Head/eyes/ears/nose/throat: She can hear my spoken word when I talk to hurt when I am next to her. She can see near objects. She does not have any white coating on her tongue. Neck: She does not have any pain in her neck when she moves her head. Lungs: Clear to auscultation. Cardiovascular: Heart rate is regular. Abdomen: Soft and not tender. Neurologic: The patient is alert. She is ambulating now with some help. There is no tremor. LAB AND X-RAY STUDIES: The patient's stool for Clostridium difficile antigen and toxin is negative. The stool culture is negative. Blood cultures negative. Urine is growing Enterococcus and chest x-ray shows bibasilar and right upper lobe infiltrates. ASSESSMENT AND PLAN: My plan is to continue the current antibiotics as mentioned above, namely Zyvox and cefepime, to treat the patient's pneumonia and UTI. COMORBIDITIES: She has metastatic cancer of the tonsil and she is being treated for that with radiation therapy and chemotherapy. In addition, the patient is elderly. She also has gastroesophageal reflux disease. cc: Harrison Valera MD [facility]
[2019-02-25] MEDS: TYLENOL PO PRN (20:54)
[2019-02-25] MEDS: XANAX PO PRN (21:46)
[2019-02-25] MEDS ORDERED: TYLENOL PO ONE (22:49)
[2019-02-25] MEDS ORDERED: MOTRIN PO ONE (22:50)
[2019-02-26 00:07] LABS: INR 1.16; PROTIME 15.7 Seconds (11.0-16.0)
[2019-02-26 00:08] LABS: PTT 43.2 Seconds (22.3-41.8)
[2019-02-26 00:12] LABS: HEMATOCRIT 22.6 % (37.0-47.0); HEMOGLOBIN 7.2 g/dL (12.0-16.0); MCH 30.6 PG (27-31); MCHC 31.9 g/dL (33-37); MCV 96.2 FL (81-99); RBC 2.35 XMIL (4.2-5.4); RDW 16.9 % (11.5-14.5); WBC 7.96 X1000 (4.8-10.8)
[2019-02-26 00:13] LABS: BASO# 0.02 X1000 (0.0-0.2); BASO% 0.3 % (0.0-0.8); IMM GRAN# 0.12 X1000 (0.0-0.04); IMM GRAN% 1.5 % (0.0-0.5); LYMPH# 0.96 X1000 (1.2-3.4); LYMPH% 12.1 % (20.5-51.1); MONO# 0.53 X1000 (0.11-0.59); MONO% 6.7 % (1.7-9.3); MPV 9.1 FL (7.4-10.4); NEUT# 6.33 X1000 (1.4-6.5); NEUT% 79.4 % (42.2-75.2); PLT 287 X1000 (130-400)
[2019-02-26 00:20] LABS: AGAP 12; ALB/GLOB RATIO 1.4; ALBUMIN 2.3 g/dL (3.5-5.0); ALKALINE PHOSPHATASE 48 U/L (32-104); BUN 7 mg/dL (8-22); CALCIUM 7.3 mg/dL (8.8-10.2); CHLORIDE 105 mmol/L (98-107); CK PROFILE 74 U/L (24-173); COSMO 278; CREATININE 0.5 mg/dL (0.5-0.9); ESTIMATED GFR > 60; GLUCOSE 168 mg/dL (70-104); GOT 30 U/L (10-30); GPT 17 U/L (10-36); POTASSIUM 3.6 mmol/L (3.5-5.1); SODIUM 138 mmol/L (136-145); TCO2 21 mmol/L (25-35); TOTAL BILIRUBIN 0.29 mg/dL (0.20-1.00)
[2019-02-26] MEDS: VANCOCIN PO SCH ×2 (03:01→08:40)
[2019-02-26] MEDS: MAXIPIME 2 GM in NS 100 ML IV SCH ×3 (03:01→20:14)
[2019-02-26 05:51] LABS: BASO# 0.03 X1000 (0.0-0.2); BASO% 0.4 % (0.0-0.8); EOS# 0.03 X1000 (0.0-0.7); EOS% 0.4 % (0.0-10.0); HEMATOCRIT 24.5 % (37.0-47.0); HEMOGLOBIN 7.8 g/dL (12.0-16.0); IMM GRAN# 0.16 X1000 (0.0-0.04); IMM GRAN% 2.1 % (0.0-0.5); LYMPH# 0.78 X1000 (1.2-3.4); LYMPH% 10.3 % (20.5-51.1); MCH 30.7 PG (27-31); MCHC 31.8 g/dL (33-37); MCV 96.5 FL (81-99); MONO# 0.65 X1000 (0.11-0.59); MONO% 8.6 % (1.7-9.3); MPV 8.8 FL (7.4-10.4); NEUT# 5.91 X1000 (1.4-6.5); NEUT% 78.2 % (42.2-75.2); PLT 279 X1000 (130-400); RBC 2.54 XMIL (4.2-5.4); WBC 7.56 X1000 (4.8-10.8)
[2019-02-26 05:57] LABS: AGAP 7; ALBUMIN 2.2 g/dL (3.5-5.0); BUN 7 mg/dL (8-22); CALCIUM 7.8 mg/dL (8.8-10.2); CHLORIDE 109 mmol/L (98-107); COSMO 280; CREATININE 0.5 mg/dL (0.5-0.9); ESTIMATED GFR > 60; GLUCOSE 115 mg/dL (70-104); PHOSPHORUS 2.7 mg/dL (2.7-4.5); POTASSIUM 3.7 mmol/L (3.5-5.1); SODIUM 141 mmol/L (136-145); TCO2 25 mmol/L (25-35)
--- NOTE | 2019-02-26 06:20 | Diag Imaging Result Doc PS360 ---
CHEST-1 VIEW - 02/25/2019 11:13 PM INDICATION: sepsis COMPARISON: 6:12 AM FINDINGS: There is slight improvement in the right upper lobe infiltrate. Stable dense bibasilar infiltrate/pneumonia. Heart size remains borderline. No new infiltrates. IMPRESSION: Improvement in the right upper lobe infiltrate. Electronically signed by Lb Flores 02/26/2019 6:18 AM
[2019-02-26] MEDS: LOVENOX SUBQ SCH (07:38)
[2019-02-26 07:56] LABS: URINE SOURCE CLEAN CATCH
[2019-02-26 08:07] LABS: BILIRUBIN URINE NEGATIVE (NEGATIVE); BLOOD URINE NEGATIVE (NEGATIVE); COLOR STRAW; GLUCOSE URINE NEGATIVE (NEGATIVE); KETONE URINE NEGATIVE (NEGATIVE); LEUKOCYTES URINE NEGATIVE (NEGATIVE); NITRITE URINE NEGATIVE (NEGATIVE); PH URINE 6.5; PROTEIN URINE NEGATIVE (NEGATIVE); SP GRAVITY URINE 1.002; TURBIDITY URINE CLEAR (CLEAR); UROBILINOGEN URINE NORMAL (NORMAL)
[2019-02-26 08:09] LABS: UR EPITHELIAL CELLS <10 /HPF (<10); URINE BACTERIA NEGATIVE /HPF; URINE RBC <10 /HPF (<10); URINE WBC <10 /HPF (<10)
[2019-02-26] MEDS: NORVASC PO SCH (08:36)
[2019-02-26] MEDS: ZYVOX 600 MG/D5W 600 MG/300 ML IVPB IV SCH ×2 (08:40→21:37)
[2019-02-26] MEDS: DITROPAN PO SCH (08:40)
--- NOTE | 2019-02-26 15:04 | PROGRESS NOTE ---
DATE: 02/26/2019 SUBJECTIVE: The patient reports feeling fine. She eating okay. We have changed to GI soft diet, and she is tolerating it very well. OBJECTIVE: Vital Signs: Temperature 98.4 degrees, heart rate 69, respiratory rate 12, blood pressure 102/44, O2 saturation 96% on 2 L nasal cannula. General: This is a chronically ill- appearing, 85-year-old, female, lying in bed in no acute distress. HEENT: Head is normocephalic and atraumatic with alopecia noted. Cardiovascular: S1, S2 heard. No murmurs, gallops, or rubs. Regular rate and rhythm. Respiratory: Some rhonchi seen in both pulmonary bases. The patient is not using any accessory muscles or having work of breathing. Abdomen: Soft, nontender to palpation. Bowel sounds present. No organomegaly. Extremities: No clubbing, cyanosis, or edema. Peripheral pulses present in both legs. Neurological: The patient is alert and oriented x3. Moves all 4 extremities. LABORATORY DATA: Reviewed. ASSESSMENT AND PLAN: 1. Bibasilar pneumonia and right upper lobe pneumonia. The patient clinically is feeling better. She had a fever of 102 last night, but nothing until now. Currently, this patient is on vancomycin oral and cefepime and Zyvox. Will continue with the same management. 2. Urinary tract infection secondary to Enterococcus faecalis. The patient is on Cefepime. Will continue with same management. 3. Metastatic throat cancer. Aware. 4. Hypertension. Blood pressure is under control. Will continue the same management. 5. Anemia of chronic disease, stable. 6. Hypokalemia, resolved. 7. Hypocalcemia. Will repeat calcium. 8. Hypophosphatemia. Phosphorus is normal today. cc: Rivas Ng MD [facility]
--- NOTE | 2019-02-26 15:31 | INFECTIOUS DISEASE PROGRESS NO ---
DATE: 02/26/2019 PRESENT ILLNESS: Ms. Russo is being treated for a right upper lobe and bibasilar pneumonia and an enterococcal urinary tract infection. MEDICATIONS: Today is day 3 of Zyvox 600 mg IV every 12 hours and day 2 of cefepime 2 g IV every 8 hours. PHYSICAL EXAMINATION: Vital Signs: Temperature is 98.4, pulse rate 69, respiratory rate 12, blood pressure 102/44, O2 saturation is 96% on 3 L nasal cannula. General: This is a chronically ill-appearing, elderly female, she is sitting up in bed currently in no acute distress. HEENT: Atraumatic, normocephalic. Oral mucous membranes are pink and moist. Conjunctivae are pale. Neck: Supple. Trachea is midline. Cardiovascular: Heart rate and rhythm are regular. Normal sinus rhythm on the monitor. Respiratory: Lung sounds have some wheezing noted to the anterior upper lobes with rales noted to the mid and lower lobes posteriorly. Abdomen: Soft, round, and mildly tender to the mid epigastric area. Bowel sounds are active. Neurologic: She is awake, alert, and appropriate. Able to get up to the bedside commode with assistance. LABORATORY AND X-RAY: Today, her white count is 7.56, hemoglobin 7.8, platelet count 279,000. Creatinine is 0.5. Estimated GFR is greater than 60. Urinalysis done today showed clear, straw- colored urine. Negative for bacteria or white blood cells. Her C difficile antigen and toxin were both negative. Blood cultures were drawn last night, and are preliminary. Chest x- ray done last night showed improvement in the right upper lobe infiltrate with stable dense bibasilar infiltrates. No new infiltrates. ASSESSMENT AND PLAN: Ms. Russo is being treated for pneumonia, which is improving based on her x-ray last night. She did have a temperature of 102 last evening and blood cultures have been drawn. Her urinalysis last night was clear and did not reflex for culture. For now, we will continue her on Zyvox and cefepime as ordered and continue to follow her cultures. These plans have been discussed with and recommended by Dr. Valera. COMORBIDITIES: For Ms. Russo include that she is elderly with metastatic throat cancer and anxiety. Dictated by DALIA Ng for Harrison Valera MD cc: Harrison Valera MD [facility]
[2019-02-26] MEDS: TYLENOL PO PRN (20:14)
[2019-02-26] MEDS: XANAX PO PRN (21:36)
[2019-02-27] MEDS: MAXIPIME 2 GM in NS 100 ML IV SCH ×2 (06:32→17:05)
[2019-02-27] MEDS: LOVENOX SUBQ SCH (06:33)
[2019-02-27 07:26] LABS: AGAP 6; ALBUMIN 2.5 g/dL (3.5-5.0); BUN 8 mg/dL (8-22); CHLORIDE 108 mmol/L (98-107); COSMO 281; CREATININE 0.5 mg/dL (0.5-0.9); ESTIMATED GFR > 60; GLUCOSE 94 mg/dL (70-104); PHOSPHORUS 2.1 mg/dL (2.7-4.5); POTASSIUM 4.4 mmol/L (3.5-5.1); SODIUM 142 mmol/L (136-145); TCO2 28 mmol/L (25-35)
[2019-02-27 07:28] LABS: BASO# 0.02 X1000 (0.0-0.2); BASO% 0.2 % (0.0-0.8); EOS# 0.08 X1000 (0.0-0.7); EOS% 0.9 % (0.0-10.0); HEMATOCRIT 23.7 % (37.0-47.0); HEMOGLOBIN 7.6 g/dL (12.0-16.0); IMM GRAN# 0.21 X1000 (0.0-0.04); IMM GRAN% 2.5 % (0.0-0.5); LYMPH# 0.91 X1000 (1.2-3.4); LYMPH% 10.7 % (20.5-51.1); MCH 31.4 PG (27-31); MCHC 32.1 g/dL (33-37); MCV 97.9 FL (81-99); MONO# 0.52 X1000 (0.11-0.59); MONO% 6.1 % (1.7-9.3); MPV 9.1 FL (7.4-10.4); NEUT# 6.79 X1000 (1.4-6.5); NEUT% 79.6 % (42.2-75.2); PLT 338 X1000 (130-400); RBC 2.42 XMIL (4.2-5.4); WBC 8.53 X1000 (4.8-10.8)
[2019-02-27] MEDS: DITROPAN PO SCH (08:20)
[2019-02-27] MEDS: NORVASC PO SCH (08:20)
[2019-02-27] MEDS: ZYVOX 600 MG/D5W 600 MG/300 ML IVPB IV SCH ×2 (08:20→20:23)
[2019-02-27] MEDS ORDERED: SODIUM PHOSPHATE 35 MMOL in NS 250 ML IV ONE (09:49)
--- NOTE | 2019-02-27 11:42 | PROGRESS NOTE ---
DATE: 02/27/2019 SUBJECTIVE: The patient reports feeling fine. She is eating okay. GI soft diet. Not feeling sick. OBJECTIVE: Vital Signs: Temperature 97.9 degrees, heart rate 70, respiratory rate 18, blood pressure 131/45, O2 saturation 97% 2 L nasal cannula. General Examination: This is a chronically ill-appearing, 85-year-old female, lying in bed in no acute distress. HEENT: Head is normocephalic, atraumatic with alopecia noted. Neck: No JVD noted. No carotid bruit. Cardiovascular exam: S1, S2 heard. No murmurs, gallops, or rubs. Regular rate and rhythm. Respiratory exam: Rhonchi heard in both pulmonary bases. Patient is not using any accessory muscles or having work of breathing. Abdomen: Soft, nontender to palpation. Bowel sounds present. No organomegaly. Extremities: No clubbing, cyanosis, or edema. Peripheral pulses present in both legs. Neurological exam: Patient alert and oriented x3. Moves 4 extremities. LABORATORY DATA: Reviewed. ASSESSMENT AND PLAN: 1. Bibasilar pneumonia and right upper lobe pneumonia. Clinically, this patient is doing better. She continues to have fever; last night she had 100.4 and nothing until now. Patient is currently on cefepime 2 grams intravenous every 8 hours and also Zyvox 600 mg intravenous every 12 hours. Today is day #4 for Zyvox, and day #4 for cefepime as well. At this point, we will continue with the same management. 2. Urinary tract infection secondary to Enterococcus faecalis. Patient is on cefepime. We will continue with the same management. Dr. Valera is managing antibiotics. 3. Metastatic throat cancer. Aware. As per family who is at bedside, they requested to consult her primary oncologist, Dr. Hutchins. We agree. 4. Anemia of chronic disease. Stable. We will continue to monitor complete blood count. 5. Hypokalemia, resolved. 6. Hypocalcemia. We will replenish calcium today. 7. Hypophosphatemia. We will replenish too. cc: Rivas Ng MD
--- NOTE | 2019-02-27 14:12 | INFECTIOUS DISEASE PROGRESS NO ---
DATE: 02/27/2019 PRESENT ILLNESS: Ms. Russo is being treated for right upper lobe and bibasilar pneumonia, as well as an enterococcal urinary tract infection. There may also be an early oral candidiasis. MEDICATIONS: Today is day 4 of treatment with Zyvox 600 mg IV every 12 hours and day 3 of cefepime 2 g IV every 8 hours. PHYSICAL EXAMINATION: Vital Signs: Temperature is 97.9 degrees, pulse rate 78, respiratory rate 18, blood pressure 131/45, O2 saturation is 97% on 2 L nasal cannula. General: This is a chronically ill-appearing elderly female. She is sitting up on the side of the bed, currently in no acute distress. HEENT: Atraumatic, normocephalic. Oral mucous membranes are pink and moist. She is complaining of burning to her tongue when she eats. Conjunctivae are pale. Neck: Supple. Trachea is midline. Cardiovascular: Heart rate and rhythm are regular. Normal sinus rhythm on the monitor. Respiratory: Lung sounds are clear in the upper lobes with rales noted to the mid and lower lobes bilaterally. Abdomen: Soft, round, and nontender. Bowel sounds are active. Neurologic: She is awake, alert, and appropriate. Currently getting up with Physical Therapy. DIAGNOSTIC STUDIES: Today her white count is 8.53, hemoglobin 7.6, platelet count 338,000. Creatinine is 0.5, estimated GFR is greater than 60. Most recent blood cultures have shown no growth after 48 hours. No imaging reports today. ASSESSMENT AND PLAN: Ms Russo is being treated for pneumonia using Zyvox and cefepime, which we will continue at this time. Two nights ago, she had a fever of 102, and last night it was 100.4. We will recheck a chest x-ray in the morning. She is complaining of some burning pain to her tongue, so we will order nystatin swish and swallow. These plans have been discussed with and recommended by Dr. Valera. COMORBIDITIES: For Ms. Russo include that she is elderly, with metastatic throat cancer, and anxiety. Dictated by DALIA Ng for Harrison Valera MD cc: Harrison Valera MD [facility]
--- NOTE | 2019-02-27 14:42 | HEMO/ONC CONSULTATION ---
DATE: 02/27/2019 CONSULTATION REQUESTED: Hospitalist service. REASON FOR CONSULTATION: Metastatic head and neck cancer, patient known. HISTORY OF PRESENT ILLNESS: Ms Russo is an 88-year-old female who is known to us as we have been treating her with chemotherapy in our office. She was actually last seen on February 20. She is currently receiving weekly Taxol. At her last visit, she reported having loose stool for couple days. She was also weak. We decided to hold treatment and give her some time to regain strength. It looks like she presented to the hospital a couple days later complaining of fever as well as worsening diarrhea. She has subsequently been admitted for further workup and evaluation. The patient currently reports that she is doing much better. Her diarrhea has pretty much resolved. During her workup, she was found to have pneumonia as well as urinary tract infection. PAST MEDICAL HISTORY: 1. Hypertension. 2. Overactive bladder. 3. Gastroesophageal reflux disease. 4. Anxiety. 5. Coronary artery disease. 6. Metastatic recurrent head and neck cancer. Currently receiving Taxol weekly. SURGICAL HISTORY: 1. Appendectomy. 2. Hysterectomy. 3. Cholecystectomy. 4. Couple back surgeries. 5. Cataracts. SOCIAL HISTORY: Patient denies any tobacco or alcohol use. She does live close to [place]. She always comes with 1 of her children to her visits. At the last office visit, her son reported that the patient was go start staying with him until she started to feel better. FAMILY HISTORY: Positive for breast cancer in her mother and lung cancer in her father. REVIEW OF SYSTEMS: Twelve point review of systems has been completed and is negative except for what is expressed in the HPI. PHYSICAL EXAMINATION: Vital Signs: Temperature 97.9 degrees, heart rate 78, respirations 18, blood pressure 131/45, O2 saturation 97% on 2 L nasal cannula. General: This is a female lying in hospital bed in no acute distress. There is no one at bedside. HEENT: Head normocephalic, atraumatic. Eyes: Pupils equal, round, reactive. Ears, nose, throat, neck, and mouth: Oral mucosa appears to be normal. Gross auditory acuity is intact. Cardiovascular: Regular rate and rhythm. Respiratory: Chest is clear. Anteriorly no wheezing noted. Abdomen: Soft, with positive bowel sounds. Normoactive bowel sounds. MUSCULOSKELETAL: Some arthritic changes but no other bony abnormalities noted.Extremities: Patient has no bilateral lower extremity edema at this time. Neurologic: Patient is alert and oriented. LABS AND STUDIES: White blood cells today are 8.52, hemoglobin 7.6, hematocrit 23.7, platelet count 338,000. Sodium 142, potassium 4.4, chloride 108, CO2 28, BUN 8, creatinine 0.5, glucose 94. ASSESSMENT/PLAN: 1. Metastatic head and neck cancer. Treatment is on hold. The patient's last Taxol treatment was on 02/14/2019. We will wait for the patient to be discharged. She can follow back up with us in the office and we can reinitiate treatment once she has recovered from her acute illness. 2. Pneumonia. Management per Infectious Disease . She is on antibiotics. She spiked a fever the other night and a redrew blood cultures that are thus far negative. 3. Urinary tract infection. Repeat urinalysis is negative. Management per Infectious Disease. 4. Diarrhea. This has resolved. She was found to be clostridium difficile is negative. edema We want to thank you for consulting us on Ms. Russo. We will continue to follow along and adjust our treatment plan per hospital course. Dictated by SHIRLENE Ceballos for Aliyah Hutchins MD cc: Aliyah Hutchins MD I have seen and examined the patient and agree with the above note which reflects my history, physical examination, assessment and plan. Aliyah LAUREN
[2019-02-27] MEDS: MYCOSTATIN SUSP PO SCH (20:23)
[2019-02-28] MEDS: MAXIPIME 2 GM in NS 100 ML IV SCH ×3 (01:46→18:07)
[2019-02-28] MEDS: LOVENOX SUBQ SCH (05:26)
[2019-02-28 07:04] LABS: AGAP 8; ALBUMIN 2.3 g/dL (3.5-5.0); BUN 7 mg/dL (8-22); CALCIUM 8.4 mg/dL (8.8-10.2); CHLORIDE 106 mmol/L (98-107); COSMO 275; CREATININE 0.5 mg/dL (0.5-0.9); ESTIMATED GFR > 60; GLUCOSE 97 mg/dL (70-104); PHOSPHORUS 2.1 mg/dL (2.7-4.5); POTASSIUM 3.6 mmol/L (3.5-5.1); SODIUM 139 mmol/L (136-145); TCO2 25 mmol/L (25-35)
[2019-02-28 07:08] LABS: BASO# 0.03 X1000 (0.0-0.2); BASO% 0.4 % (0.0-0.8); EOS# 0.07 X1000 (0.0-0.7); EOS% 0.8 % (0.0-10.0); HEMATOCRIT 23.7 % (37.0-47.0); HEMOGLOBIN 7.6 g/dL (12.0-16.0); IMM GRAN# 0.22 X1000 (0.0-0.04); IMM GRAN% 2.6 % (0.0-0.5); LYMPH# 0.95 X1000 (1.2-3.4); LYMPH% 11.2 % (20.5-51.1); MCHC 32.1 g/dL (33-37); MCV 96.7 FL (81-99); MONO# 0.66 X1000 (0.11-0.59); MONO% 7.8 % (1.7-9.3); MPV 8.6 FL (7.4-10.4); NEUT# 6.56 X1000 (1.4-6.5); NEUT% 77.2 % (42.2-75.2); PLT 353 X1000 (130-400); RBC 2.45 XMIL (4.2-5.4); RDW 16.7 % (11.5-14.5); WBC 8.49 X1000 (4.8-10.8)
[2019-02-28] MEDS: MYCOSTATIN SUSP PO SCH ×5 (09:40→20:47)
[2019-02-28] MEDS: DITROPAN PO SCH (09:40)
[2019-02-28] MEDS: ZYVOX 600 MG/D5W 600 MG/300 ML IVPB IV SCH ×2 (09:43→20:50)
[2019-02-28] MEDS: NORVASC PO SCH (09:44)
--- NOTE | 2019-02-28 10:17 | Diag Imaging Result Doc PS360 ---
EXAM: CHEST-2 VIEWS 02/28/2019 HISTORY: pneumonia TECHNIQUE: AP and lateral chest COMMENT: There is bilateral lower lobe opacification particularly on the left side. Compared to the previous study of 02/25/2019 there has been some improvement with regard to the right upper lobe which appears less dense. The heart size and pulmonary vascularity are within normal limits. The possibility of a left pleural effusion cannot be excluded. IMPRESSION: Bibasilar pneumonia. Electronically signed by Venu Thomas 02/28/2019 10:15 AM
[2019-02-28] MEDS ORDERED: MAALOX PLUS LIQUID PO PRN (16:05)
[2019-02-28] MEDS ORDERED: LASIX IV ONE (16:16)
--- NOTE | 2019-02-28 16:43 | PROGRESS NOTE ---
DATE: 02/28/2019 INTERVAL HISTORY: No acute event overnight. She just has not had any more fever episode since last 24 hours. However, she has been saturating 90 to 94 percent on 2 to 3 L nasal cannula. SUBJECTIVE: She is feeling better than she presented with. She denies any chest pain or shortness of breath. However, she is still needing oxygen. She is complaining of some dry cough, which has started recently since the last day. We discussed about her exam findings as well as chest x-ray findings. I answered all of her questions. VITALS: Temperature 98.2 degrees, pulse 80, respiratory rate 16, blood pressure 114/50, saturating 95% on 2 L nasal cannula. I advised her to use incentive spirometer. PHYSICAL EXAMINATION: General: Does not appear in any acute distress. Oral cavity is moist. She has decreased air entry with decreased vocal resonance on bilateral infrascapular region with mild inspiratory crackles. Occasional egophony. No wheeze or rhonchi. Heart: S1, S2 normal. Appears sinus on bedside monitor. No murmur, rub, or gallop. Abdomen: Soft. Extremities: She does not have any lower extremity edema. LABORATORY: Labs are suggestive of no leukocytosis, normocytic anemia. Normal platelet count. Normal electrolytes. MICROBIOLOGY: No new data. Her blood cultures on 02/25 did not have any growth to date. ASSESSMENT AND PLAN: 1. Bibasilar and right upper lobe pneumonia leading to acute hypoxic respiratory failure. Continue intravenous linezolid and intravenous cefepime as per Infectious Disease recommendation. She has not had fever for almost 24 hours now. I appreciate ID recommendations about changing the antibiotics to p.o. for potential discharge in the next 48 hours or so. She also had enterococcal faecalis urinary tract infection. 2. Metastatic head and neck cancer. Prior to this admission, patient was receiving weekly Taxol for metastatic recurrent head and neck cancer. Hematology/Oncology on board as well. 3. Anemia of chronic disease. Continue to monitor. No need of transfusion at the moment. 4. Others. Continue alprazolam for anxiety; oxybutynin for overactive bladder; acetaminophen for pain; and amlodipine for hypertension. 5. Disposition: The patient did appear very weak with physical therapy evaluation and has been needing a walker which is significantly away from her baseline. I discussed with the patient and her family at bedside about rehab options. They are considering it. My plan is to change her antibiotics to p.o. according to ID recommendation in the next 24 hours if she does not have any fever episodes today. Accordingly, my plan is to discharge her in the next 24 to 48 hours on home physical therapy or rehab depending on what family decides. All of their questions have been answered. cc: Chaitanya Cobian MD
--- NOTE | 2019-02-28 17:11 | INFECTIOUS DISEASE PROGRESS NO ---
DATE: 02/28/2019 PRESENT ILLNESS: The patient has a right upper lobe and bibasilar pneumonia. She has an enterococcal urinary tract infection as well and yesterday she was discovered to have an early oral candidiasis. MEDICATIONS: This is day 5 of treating with Zyvox and day 4 of treating with cefepime and day 1 of treating with Mycostatin swish and swallow. PHYSICAL EXAMINATION: Vital Signs: Temperature is 98.6 degrees, pulse 79, respirations 20, blood pressure 124/50. General: This is a chronically ill-appearing, elderly female. She is in no acute distress, however. Head, eyes, ears, nose, and throat: She can hear my spoken words and see near objects. She does not have any white patches on her tongue. Neck: She does not have any neck pain when she moves her head or her neck. Lungs: Clear to auscultation. Cardiovascular: Heart rate is regular. Abdomen: Soft and nontender. Neurologic: The patient is alert. She can move her extremities. There is no tremor. LAB AND X-RAY: Chest x-ray shows stable bilateral lower lobe infiltrate and an improved right upper lobe density. CBC shows a white count of 8,490, hemoglobin 7.6, and platelet count 353,000. Creatinine is 0.5. GFR is greater than 60. ASSESSMENT AND PLAN: The patient is being treated for pneumonia. I plan to continue her current antibiotics. Also, she may have an early oral candidiasis and for that the plan is to keep her on Mycostatin. COMORBIDITIES: The patient is elderly and she has metastatic throat cancer. cc: Harrison Valera MD [facility]
[2019-03-01] MEDS: XANAX PO PRN ×2 (00:15→20:59)
[2019-03-01] MEDS: MAXIPIME 2 GM in NS 100 ML IV SCH (01:29)
[2019-03-01] MEDS: LOVENOX SUBQ SCH (05:24)
[2019-03-01] MEDS: MYCOSTATIN SUSP PO SCH ×4 (08:18→20:59)
[2019-03-01] MEDS: ZYVOX 600 MG/D5W 600 MG/300 ML IVPB IV SCH (08:18)
[2019-03-01] MEDS: DITROPAN PO SCH (08:19)
[2019-03-01] MEDS: NORVASC PO SCH (08:19)
[2019-03-01] MEDS: DOXYCYCLINE PO SCH ×2 (09:45→20:58)
[2019-03-01] MEDS: CEFTIN PO SCH ×2 (09:45→20:59)
[2019-03-01] MEDS: ALBUTEROL NEB INH PRN (09:55)
--- NOTE | 2019-03-01 15:04 | INFECTIOUS DISEASE PROGRESS NO ---
DATE: 03/01/2019 HISTORY OF PRESENT ILLNESS: Ms. Russo is being treated for bibasilar pneumonia. She also had an enterococcal urinary tract infection which seems to have cleared. The patient also has an oral candidiasis. MEDICATIONS: She is on day 6 of IV Zyvox and cefepime. However her IV has gone bad today, so we will transition her to oral antibiotics. The patient is also receiving nystatin swish and swallow. PHYSICAL EXAMINATION: Vital Signs: Temperature is 98.4 degrees, pulse rate 82, respiratory rate 18, blood pressure 123/43, O2 saturation is 94% on 2 L nasal cannula. General: This is a chronically ill-appearing, elderly female. She is sitting up in bed currently in no acute distress. HEENT: Atraumatic, normocephalic. Oral mucous membranes are pink and moist. Conjunctivae are pale. Neck: Supple. Trachea is midline. Cardiovascular: Heart rate and rhythm are regular. Normal sinus rhythm on the monitor. Respiratory: Lung sounds are clear in the upper lobes with rales noted in the bases. Abdomen: Soft, round and nontender. Bowel sounds are active. Neurologic: She is awake, alert, and appropriate, and is able to ambulate with assistance. LABORATORY AND X-RAY: None available today. ASSESSMENT AND PLAN: Ms. Russo is being treated for pneumonia, and her IV has gone bad. The nurses have had a hard time replacing it. At this point, we will order broad- spectrum coverage using doxycycline 100 mg by mouth every 12 hours and cefuroxime 500 mg by mouth every 12 hours. We will also continue her nystatin swish and swallow for the oral candidiasis. She has been afebrile, and the plan is to send her to rehab when arrangements have been made. These plans have been discussed with and recommended by Dr. Valera. COMORBIDITIES: For Ms. Russo include that she is elderly, with metastatic throat cancer with radiation and chemotherapy, and gastroesophageal reflux disease. Dictated by DALIA Ng for Harrison Valera MD cc: Harrison Valera MD [facility]
--- NOTE | 2019-03-01 18:08 | PROGRESS NOTE ---
DATE: 03/01/2019 INTERVAL HISTORY: No acute overnight events. Physical Therapy had evaluated the patient. Patient was able to walk in the hallway. However, she appears very slow and weak. The patient denies any chest pain or shortness of breath. She tells me that she may have one of her family friends come by and live with her starting Monday, but I was not able to confirm that. I again strongly recommended rehabilitation to her after my discussion with Physical Therapy. OBJECTIVE: Vitals: Temperature 98.2 degrees, pulse 89, respiratory rate 16, blood pressure 120/57 saturating 94% on 2 L nasal cannula. At room air, she had a saturation of 88%. General: Does not appear in any acute distress. Oral cavity is moist. She had decreased air entry with decreased vocal resonance, bilateral infrascapular region, with mild inspiratory crackles, occasional egophony. No wheezes or rhonchi. Heart: S1, S2 normal. Appears sinus at bedside monitor. No murmur, rub, or gallop. Abdomen is soft. No lower extremity edema. DIAGNOSTIC STUDIES: Normocytic anemia, normal platelet count. Normal electrolytes except low phosphorus and I encouraged her to take by mouth. ASSESSMENT AND PLAN: 1. Bibasilar and right upper lobe pneumonia, leading to acute hypoxic respiratory failure. Her antibiotics have been changed to oral doxycycline and cefuroxime as per the Infectious Disease recommendation. My plan is to give her 10 days of antibiotics. She would need home 2 L oxygen because of her persistent pneumonia. 2. Past history of metastatic head and neck cancer. She is currently on weekly chemotherapy, Taxol. Hematology/Oncology on board and chemotherapy is currently held. 3. Anemia of chronic disease. No need of transfusion at the moment. 4. Continue alprazolam for anxiety; oxybutynin for overactive bladder; acetaminophen for pain; amlodipine for essential hypertension. DISPOSITION: Though patient appears to be medically ready to be discharged, the patient wanted to go home; however, after discussion with Physical Therapy, I had recommended rehabilitation. I called two of the patient's sons and have left voice messages. I am awaiting discussion with the sons. If the patient is adamant about going home and if they have 24-hour family help, then I will consider discharging her with home physical therapy and home oxygen. If the sons agree, then on Monday, I will place social work rehab consult to find a rehabilitation bed. Plan of care discussed with the patient. cc: Chaitanya Cobian MD
[2019-03-01] MEDS ORDERED: ZYVOX PO SCH (20:00)
[2019-03-02] MEDS: LOVENOX SUBQ SCH (05:36)
[2019-03-02] MEDS: DITROPAN PO SCH (10:50)
[2019-03-02] MEDS: CEFTIN PO SCH ×2 (10:50→22:32)
[2019-03-02] MEDS: MYCOSTATIN SUSP PO SCH ×4 (10:51→22:29)
[2019-03-02] MEDS: NORVASC PO SCH (10:51)
[2019-03-02] MEDS: DOXYCYCLINE PO SCH ×2 (10:56→22:29)
--- NOTE | 2019-03-02 15:51 | PROGRESS NOTE ---
DATE: 03/02/2019 INTERVAL HISTORY: Yesterday, patient had decided that she would rather go to rehab after I had a discussion with the patient and family at bedside. Social work rehab consult has been placed. No other acute events. SUBJECTIVE: Patient states she just worked with physical therapy and is feeling okay at the moment. VITAL SIGNS: Patient is denying any chest pain or cough. Temperature 98 degrees, pulse 88, respiratory rate 16, blood pressure 110/56, saturating 94% on 2 L nasal cannula. PHYSICAL EXAMINATION: General: Does not appear in any acute distress. HEENT: Oral cavity is moist. Respiratory: Air entry bilaterally equal. No wheeze, rhonchi, or crackles. Cardiovascular: S1, S2 normal. No murmur, rub, or gallop. Abdomen: Soft, nontender. Extremities: No lower extremity edema. Neurologic: She is alert and oriented x3. LABS: No CBC or BMP today. ASSESSMENT AND PLAN: 1. Bibasilar and right upper lobe pneumonia leading to acute hypoxic respiratory failure. Continue oral doxycycline and cefuroxime as per Infectious Disease recommendation for a total of 10 days. She would need home 2 L oxygen because of her persistent pneumonia and acute hypoxic respiratory failure. 2. Past history of metastatic head and neck cancer, currently on weekly Taxol. Hematology/Oncology on board and chemotherapy is currently held. 3. Anemia of chronic disease. No need of transfusion at the moment. 4. Others. Continue alprazolam for anxiety; oxybutynin for overactive bladder; acetaminophen for pain; amlodipine for essential hypertension. 5. Disposition: Social work rehabilitation consultation has been placed. As soon as a bed becomes available, the plan is to transfer patient to rehabilitation, hopefully early next week. Plan of care discussed with the patient, and all of her questions have been answered. cc: Chaitanya Cobian MD [facility]
[2019-03-02] MEDS: XANAX PO PRN (22:29)
[2019-03-03 06:55] LABS: BASO# 0.05 X1000 (0.0-0.2); BASO% 0.6 % (0.0-0.8); EOS# 0.16 X1000 (0.0-0.7); EOS% 1.9 % (0.0-10.0); HEMATOCRIT 24.9 % (37.0-47.0); HEMOGLOBIN 8.2 g/dL (12.0-16.0); IMM GRAN# 0.31 X1000 (0.0-0.04); IMM GRAN% 3.7 % (0.0-0.5); LYMPH# 1.18 X1000 (1.2-3.4); LYMPH% 14.2 % (20.5-51.1); MCH 32.7 PG (27-31); MCHC 32.9 g/dL (33-37); MCV 99.2 FL (81-99); MONO# 1.01 X1000 (0.11-0.59); MONO% 12.1 % (1.7-9.3); MPV 8.3 FL (7.4-10.4); NEUT# 5.61 X1000 (1.4-6.5); NEUT% 67.5 % (42.2-75.2); PLT 361 X1000 (130-400); RBC 2.51 XMIL (4.2-5.4); RDW 15.7 % (11.5-14.5); WBC 8.32 X1000 (4.8-10.8)
[2019-03-03 07:26] LABS: AGAP 8; BUN 12 mg/dL (8-22); CALCIUM 8.6 mg/dL (8.8-10.2); CHLORIDE 105 mmol/L (98-107); COSMO 275; CREATININE 0.5 mg/dL (0.5-0.9); ESTIMATED GFR > 60; GLUCOSE 99 mg/dL (70-104); POTASSIUM 4.1 mmol/L (3.5-5.1); SODIUM 138 mmol/L (136-145); TCO2 25 mmol/L (25-35)
[2019-03-03] MEDS: LOVENOX SUBQ SCH (07:33)
[2019-03-03] MEDS: DOXYCYCLINE PO SCH ×2 (11:13→22:25)
[2019-03-03] MEDS: MYCOSTATIN SUSP PO SCH ×4 (11:13→22:24)
[2019-03-03] MEDS: NORVASC PO SCH (11:13)
[2019-03-03] MEDS: CEFTIN PO SCH ×2 (11:13→22:25)
[2019-03-03] MEDS: DITROPAN PO SCH (11:14)
--- NOTE | 2019-03-03 13:22 | PROGRESS NOTE ---
DATE: 03/03/2019 INTERVAL HISTORY: No acute events overnight. SUBJECTIVE: Patient appears pleasant, not in any acute distress. Denies new complaints. We discussed about physical exam findings and probable rehabilitation placement tomorrow. I answered all of her questions. OBJECTIVE: Vitals: She has been afebrile with temperature of 97.4 degrees, pulse 89, respiratory rate 16, blood pressure 130/53, saturating 95% on room air. Currently on physical examination, not in any acute distress. Oral cavity is moist. Air entry bilaterally equal. No wheeze, rhonchi, crackles. S1, S2 normal. No murmur, rub, gallop. Abdomen is soft, nontender. No lower extremity edema. She is alert, oriented x3. DIAGNOSTIC STUDIES: CBC has normocytic anemia, normal platelet count. BMP is essentially unremarkable. ASSESSMENT AND PLAN: 1. Bibasilar and right upper lobe pneumonia leading to acute hypoxic respiratory failure. Continue oral doxycycline and cefuroxime as per ID recommendation. She would need home O2 because of persistent hypoxia. 2. History of metastatic head and neck cancer, currently on weekly Taxol. Hematology/Oncology on board, and currently, her chemotherapy is on hold. 3. Anemia of chronic disease. No need of transfusion at the moment. 4. Others: Continue alprazolam for anxiety, oxybutynin for overactive bladder, acetaminophen for pain, amlodipine for essential hypertension. DISPOSITION: Social Work has been consulted for possible rehabilitation placement. Plan of care discussed with the patient. All of her questions have been answered. cc: Chaitanya Cobian MD
[2019-03-03] MEDS: XANAX PO PRN (22:25)
[2019-03-04] MEDS: TYLENOL PO PRN (04:51)
[2019-03-04] MEDS: LOVENOX SUBQ SCH ×2 (04:51→07:03)
[2019-03-04] MEDS: CEFTIN PO SCH ×2 (11:04→20:07)
[2019-03-04] MEDS: NORVASC PO SCH (11:05)
[2019-03-04] MEDS: DOXYCYCLINE PO SCH ×2 (11:05→20:07)
[2019-03-04] MEDS: MYCOSTATIN SUSP PO SCH ×4 (11:05→20:07)
[2019-03-04] MEDS: DITROPAN PO SCH (11:05)
[2019-03-04] MEDS: XANAX PO PRN (20:07)
[2019-03-05] MEDS: LOVENOX SUBQ SCH (05:15)
[2019-03-05] MEDS: ALBUTEROL NEB INH PRN (08:39)
[2019-03-05] MEDS: NORVASC PO SCH (09:35)
[2019-03-05] MEDS: DITROPAN PO SCH (09:35)
[2019-03-05] MEDS: DOXYCYCLINE PO SCH (09:35)
[2019-03-05] MEDS: CEFTIN PO SCH (09:35)
[2019-03-05] MEDS: MYCOSTATIN SUSP PO SCH ×2 (09:35→13:37)
--- NOTE | 2019-03-05 10:48 | Diag Imaging Result Doc PS360 ---
CHEST-2 VIEWS - 03/05/2019 INDICATION: pneumonia COMPARISON: 02/28/2019 FINDINGS: Lung volumes are improved. There has been improvement in the bilateral lower lobe infiltrates, left greater than right. No pneumothorax or large pleural effusion. Heart size is top normal. IMPRESSION: Improvement from prior. Electronically signed by Lb Flores 03/05/2019 10:45 AM
[2019-03-05 11:21] VITALS: BP 125/47
--- NOTE | 2019-03-05 16:29 | DISCHARGE SUMMARY ---
ADMISSION DATE: 02/22/2019 DISCHARGE DATE: 03/05/2019 PRIMARY CARE PHYSICIAN: None. ONCOLOGIST: Dr. Aliyah Hutchins ADMISSION DIAGNOSES: 1. Diffuse colitis. 2. Bibasilar pneumonia. 3. Probable urinary tract infection. 4. Metastatic throat cancer. 5. Hypertension. 6. Anemia secondary to probable neoplasm/chemotherapy. 7. Hypokalemia. 8. Dehydration. 9. Hypocalcemia. 10.Hypophosphatemia. 11. Acute hypoxic respiratory failure DISCHARGE DIAGNOSES: 1. Bibasilar and right upper lobe pneumonia leading to acute hypoxic respiratory failure. 2. History of metastatic head and neck cancer with chemotherapy on hold. 3. Anemia of chronic disease. SUMMARY OF FINDINGS: This is an 88 -year-old female who presented with a 2 week history of nonbloody diarrhea worse when she eats, 3 to 4 loose stools a day. She denied any contacts with anybody with diarrheal illness. No recent antibiotic use. No recent changes in medications. She was found to be profoundly weak. She developed intermittent fevers. She was unable to walk to the point that he son had to practically lift here and bring her in. She admits to having postural lightheadedness. No genitourinary or cardiorespiratory complaints. She was seen by Dr. Hutchins's nurse practitioner 2 days prior to coming in and chemotherapy was withheld because of abnormal blood work. She was admitted, transfused with one unit of packed red blood cells, placed on empiric antibiotic. Infectious disease was consulted. Oncology was consulted. Per infectious disease recommendations she will need a total of 10 days of doxycycline and cefuroxime and will need home O2 at 2 liters due to her persistent pneumonia and acute hypoxic respiratory failure. Anemia has improved and no further transfusions were done and it is felt now that she can safely be discharged to rehab. DISCHARGE MEDICATIONS: 1. Tylenol 650 mg p.o. q 6 hours p.r.n. 2. Albuterol nebulizer q 6 hours p.r.n. 3. Xanax 0.25 mg p.o. t.i.d. p.r.n. 4. Norvasc 5 mg p.o. daily. 5. Ceftin 500 mg p.o. q 12 hours. 6. Doxycycline 100 mg p.o. q 12 hours. 7. Ditropan 5 mg p.o. daily. 8. Lexapro 10 mg p.o. daily. 9. Ferrous sulfate 325 mg p.o. b.i.d. 10.Protonix 40 mg p.o. q hour of sleep. FOLLOWUP: After her rehab stay she will need to follow up with her oncologist and with infectious disease and then will have [facility]. Time Spent in Discharge 35 minutes Dictated by DALIA Izquierdo for Chaitanya Cobian MD cc: DALIA Izquierdo MD Leroy F. Harris, MD Heather Shah, MD I agree with most components of discharge summary mentioned above. A separate addendum has been dictated. LEONIDAS
--- NOTE | 2019-03-06 12:14 | PROGRESS NOTE ---
DATE: 03/04/2019 INTERVAL HISTORY: No acute events. SUBJECTIVE: Patient denies any complaints using oxygen. She states she has been using incentive spirometer regularly now. She is asking me questions about rehab transfer, and I told her that the social work team is working on that. VITALS: Temperature 98 degrees, pulse 74, respiratory rate 16, blood pressure 122/55, and saturating 98% on 2 L nasal cannula. PHYSICAL EXAMINATION: General: Does not appear in any acute distress. No pallor, cyanosis, clubbing, or icterus. Lungs: Air entry bilaterally equal. No wheeze or rhonchi. Mild inspiratory crackles bilateral, especially left infrascapular region. Heart: S1, S2 normal. No murmur, rub or gallop. Abdomen: Soft and nontender. Extremities: No lower extremity edema. Neurologic: She is alert and oriented x3. LABORATORY: No new labs. ASSESSMENT AND PLAN: 1. Bibasilar and right upper lobe pneumonia leading to acute hypoxic respiratory failure. Continue oral doxycycline, cefuroxime as per ID recommendation. She would need oxygen at the time of discharge. 2. History of metastatic head and neck cancer, currently on weekly Taxol. Chemotherapy on hold. 3. Anemia of chronic disease currently stable; continue alprazolam for anxiety; oxybutynin for overactive bladder; acetaminophen for pain; amlodipine for essential hypertension. DISPOSITION: Patient is awaiting rehab bed placement. Plan is to discharge her to rehab. cc: Chaitanya Cobian MD
--- NOTE | 2019-03-06 15:07 | INFECTIOUS DISEASE PROGRESS NO ---
DATE: 03/04/2019 HISTORY OF PRESENT ILLNESS: The patient is being treated for a bibasilar pneumonia. MEDICATIONS: The patient is on a combination of Ceftin and doxycycline. Both being given p.o. This is the 9th day of treatment with the patient's antibiotics for her pneumonia. PHYSICAL EXAMINATION: Vital Signs: Temperature is 98, pulse 74, respirations 16, blood pressure 122/55. General: This is a [id number], elderly female. She is in no acute distress. Head, Eyes, Ears, Nose and Throat: She can hear my spoken words and see near objects. She does not have any white coating on her tongue. Neck: She does not have any neck pain when she moves her neck or head. Lungs: Clear to auscultation. Cardiovascular: Heart rate is regular. Abdomen: Soft and nontender. Neurologic: The patient is alert. She can move her extremities. There is no tremor. LAB AND X-RAY: There is no radiographic study from today. CBC shows a white count of 8320, hemoglobin of 8.2 and platelet count of 361,000. Creatinine is 0.5. GFR is greater than 60. ASSESSMENT/PLAN: The patient has pneumonia. I discussed the patient's case with Dr. Cobian. Our plan is that she is going to be going to a rehab facility, and we both agree to continuing Ceftin and doxycycline for another 5 days. In case the patient does not go today, I have put an order in for a chest x-ray tomorrow morning. COMORBIDITIES: The patient is elderly. She has metastatic throat cancer which has been treated with radiation and chemotherapy. She also has gastroesophageal reflux disease. cc: Harrison Valera MD
--- NOTE | 2019-03-08 09:42 | INFECTIOUS DISEASE PROGRESS NO ---
DATE: 03/05/2019 PRESENT ILLNESS: The patient is being treated for a bilateral pneumonia and oral candidiasis. MEDICATIONS: The patient was switched yesterday to Ceftin and doxycycline. PHYSICAL EXAMINATION: Vital Signs: Temperature is 98.2, pulse 87, respirations 16, blood pressure is 125/47. General: This is a somewhat ill-appearing elderly female. Overall she looks much better than when she came in. Head, Eyes, Ears, Nose, Throat: She can hear my spoken words and see near objects. She does not have any white coating on her tongue at this time. Neck: No stiffness. Lungs: Clear to auscultation. Cardiovascular: Regular heart rate. Abdomen: Soft and nontender. Neurologic: Patient is alert. She is able to ambulate. There is no tremor. LAB AND X-RAY: There is no new lab for today. The chest x-ray shows that there is improvement in both left and right lung bases. ASSESSMENT/PLAN: Patient has pneumonia. If the patient goes home tomorrow, I would suggest continuing Ceftin and doxycycline for five more days. COMORBIDITIES: Patient is elderly. She has metastatic throat cancer for which she is treated with radiation and chemotherapy. She also has gastroesophageal reflux disease. ADDENDUM: As mentioned above, I would suggest treating the patient for five more days with doxycycline and Ceftin. The doses are 100 mg of doxycycline every 12 hours and 500 mg of Ceftin every 12 hours. I would suggest doing it for five more days. I am going to sign off on the patient's case but I am available to see her on a p.r.n. basis. cc: Harrison Valera MD
== END 2019-03-05 16:35 | DRG 391 ==
LOC: ED 20:20 → 4N 02-22 02:09 → SUATTDRO 02-22 02:09
PROVIDERS: ATTEND Internal Medicine
CPT/HCPCS: 51701; 71010; 71020; 71045; 71046; 74177; 80048; 80053; 80069; 81001; 82550; 82607; 82728; 82746; 83540; 83605; 83630; 83690; 83735; 84100; 84484; 85025; 85045; 85610; 85730; 86140; 86850; 86900; 86901; 87040; 87045; 87046; 87077; 87088; 87186; 87324; 87449; 93005; 94640; 94760; 94761; 96361; 96374; 97110; 97116; 97162; 97166; 97530; 97535; 99285; A9270; J0610; J0692; J0696; J1650; J1940; J2020; J2185; J2405; J3475; J3480; J7030; J7050; P9612; Q9967; S0030